=== PATIENT | male | born 1960 | race Hispanic/Latino ===

== ENCOUNTER 2023-11-21 13:46 | Emergency (ER) | payer MEDICARE ==
[~2023-11-21] VITALS: Ht 167.6 cm; Wt 90.7 kg
[2023-11-21 14:00] VITALS: TEMP 99
[2023-11-21] MEDS ORDERED: BACTRIM DS TAB1 EACH PO (16:08)
[2023-11-21 16:18] VITALS: PULSE 98; RESP 18; O2SAT 96
== END 2023-11-21 16:20 | disposition home or self-care (01) ==
LOC: ER 14:32 → EDBD 14:32 → ER 16:20
DX: R50.9 Fever, unspecified (principal); E11.621 Type 2 diabetes mellitus with foot ulcer; I10 Essential (primary) hypertension; N28.9 Disorder of kidney and ureter, unspecified
CPT/HCPCS: 99282